=== PATIENT | male | born 1980 | race Caucasian/White ===

== ENCOUNTER 2018-02-03 11:13 | Emergency (ER) | payer OTHER ==
--- NOTE | 2018-02-03 11:20 | ER Report ---
History and Physical Time Seen By MD: 11:19 HPI/ROS CHIEF COMPLAINT: Laceration HISTORY OF PRESENT ILLNESS: 37-year-old male patient presents to emergency room with complaint of laceration to the left forearm. Patient states that he was skinning his elk when the knife slipped and cut his left forearm. Patient denies any numbness tingling. He does have some pain. He has pain with flexion of the left index finger. Patient states that his tetanus shot has been within the last 3 years. He did apply pressure to the wound and came to the emergency room. Patient denies any fevers chills. Allergies: Coded Allergies: No Known Allergies (Verified Allergy, Unknown, 02/03/18) Home Meds Active Scripts Cephalexin 500 Mg Tab (KEFLEX 500 MG TAB) 500 Mg Tablet, 500 MG PO Q6H, #20 TAB Prov:MARK BUENROSTRO ANGELINA 02/03/18 Past Medical/Surgical History Patient denies any pertinent medical history. Patient has a surgical history of a bursa sac removed from right knee. Reviewed Nurses Notes: Yes Constitutional Vital Sign - Last 24 Hours 02/03/18 02/03/18 02/03/18 02/03/18 11:13 11:20 11:22 11:24 Temp 97.8 Pulse ??? 71 Resp 13 B/P (MAP) 97/55 97/55 99/72 Pulse Ox 95 O2 Delivery Room Air 02/03/18 02/03/18 02/03/18 02/03/18 11:30 11:35 11:43 11:45 Pulse 66 B/P (MAP) 95/61 101/69 96/65 Pulse Ox 92 02/03/18 12:00 B/P (MAP) 109/69 Physical Exam General appearance: Alert no distress. Respiratory: Chest is non tender, lungs are clear to auscultation. Cardiac: Regular rate and rhythm. Skin: Patient has a 2.5 cm laceration to the palmar aspect of the left forearm. This into the subcutaneous tissue. I do not see any tendon or ligament injury. DIFFERENTIAL DIAGNOSIS: After history and physical exam differential diagnosis was considered for laceration. Medical Decision Making ED Course/Re-evaluation ED Course Patient was admitted to examine, history of physical were obtained. Differential diagnoses were considered. On examination patient does have a 2.570 laceration to the left forearm. Patient has good movement to the fingers. There is no obvious tendon involvement. The wound was anesthetized, cleaned and repaired described below. Patient tolerated procedure well. We'll go ahead and discharge him home at this time. Due to him skinning his elk we'll go ahead and put him on some antibiotics. He is to limit his activity by pain. He is return to emergency room with any signs of infection. Patient states Tylenol or ibuprofen as if pain. Patient verbalized understanding and agreement with plan. Procedure: Laceration repair. Verbal consent was obtained from the patient. The 2.5 cm laceration on the left forearm was anesthetized in the usual fashion. The wound was scrubbed, draped and explored to its base with a gloved finger. There were no deep structures involved. No tendon injury was identified. The wound was repaired with 5 simple interrupted sutures using 4-0 Ethilon material. The wound repair was simple. The procedure was performed by myself. Decision to Disposition Date: Feb 03, 2018 Decision to Disposition Time: 12:30 Depart Departure Latest Vital Signs Vital Signs Date Time Temp Pulse Resp B/P (MAP) Pulse Ox O2 Delivery O2 Flow Rate FiO2 02/03/18 12:00 109/69 02/03/18 11:43 66 92 02/03/18 11:22 97.8 13 Room Air Impression: Primary Impression: Forearm laceration Condition: Improved Disposition: HOME OR SELF-CARE New Scripts Cephalexin 500 Mg Tab (KEFLEX 500 MG TAB) 500 Mg Tablet 500 MG PO Q6H, #20 TAB Prov: MARK BUENROSTRO ANGELINA 02/03/18 Patient Instructions: Laceration (ED) Additional Instructions: Keep wound dry for 48 hours. Follow up with your primary care provider in the next 7-10 days to have sutures removed. Monitor for signs of infection; redness, swelling, heat, discharge, increasing pain or red streaking. Take Tylenol or Ibuprofen as needed for pain. Return to the ER with any concerns. You may change dressing as needed. Problem Qualifiers Primary Impression: Forearm laceration Encounter type: initial encounter Laterality: left Qualified Codes: S51.812A - Laceration without foreign body of left forearm, initial encounter PORTERELAYNEMARKSAGRARIO ALFARO Feb 03, 2018 11:19
[2018-02-03] MEDS ORDERED: CEPH500T7 PO (11:39)
[2018-02-03 12:00] VITALS: BP 109/69
== END 2018-02-03 12:12 | disposition home or self-care (01) ==
LOC: ER 11:28
DX: S51.812A Laceration without foreign body of left forearm, initial encounter (principal); W26.0XXA Contact with knife, initial encounter
CPT/HCPCS: 99283